=== PATIENT | female | born 1980 | race Asian ===

== ENCOUNTER 2018-09-20 04:50 | Emergency (ER) | payer OTHER ==
[~2018-09-20] VITALS: Ht 154.9 cm; Wt 59.0 kg
[2018-09-20] MEDS ORDERED: TENORMIN50 MG (05:10)
== END 2018-09-20 07:48 | disposition home or self-care (01) ==
LOC: ER 04:50
DX: M54.5 Low back pain (principal); Z33.1 Pregnant state, incidental

== ENCOUNTER 2018-09-25 01:52 | Emergency (ER) | payer OTHER ==
[~2018-09-25] VITALS: Ht 154.9 cm; Wt 61.2 kg
[~2018-09-25 01:52] MED LIST: TENORMIN50 MG
== END 2018-09-25 08:08 | disposition home or self-care (01) ==
LOC: ER 01:52
DX: O20.0 Threatened abortion (principal)